=== PATIENT | female | born 1985 | race Caucasian/White ===

== ENCOUNTER 2016-11-04 13:16 | Observation (INO) | payer BC ==
[~2016-11-04] VITALS: Ht 154.9 cm; Wt 93.0 kg
--- NOTE | ~2016-11-04 | DS ---
Discharge Summary [id number] [place]. [address] NAME: DION CANAS : 85 STATUS : DIS Laci PAT#: [id number] AGE: 30 ADM/REG DATE : 11/04/16 MR#: [id number] REPORT SERV DATE: 11/07/16 DICTATED BY: DARRIAN CHAPA DATE: 11/06/16 REPORT STATUS : Draft TRANSCRIBED BY: MODRavi DATE: 11/06/16 ADMISSION DATE: 11/04/2016 DISCHARGE DATE: 11/06/2016 DISCHARGE DIAGNOSES: 1. Hyperglycemia. 2. Poorly-controlled diabetes mellitus type 2. 3. Hyponatremia. 4. Sinus tachycardia. 5. Elevated D-dimer. 6. Hypertriglyceridemia. 7. Hepatic steatosis. 8. Morbid obesity. 9. Major depression. 10.Anxiety disorder. 11.Tobacco abuse. 12.Marijuana use. 13.Gastroparesis. 14.Diabetes polyneuropathy. IMAGING: CTA of chest impression bibasilar segmental atelectasis, no pulmonary emboli. Chest x-ray, AP and lateral impression, no acute cardiopulmonary process. HISTORY OF PRESENT ILLNESS: For detailed HPI, please make reference to Dr. Maco Alexis's dictation on 11/04/2016. In brief, this is a 30-year-old female with medical history of hypertension, diabetes mellitus type 2, obesity, who presented to the emergency department with complaints of generalized body aches and was found to have significantly elevated blood sugar. PHYSICAL EXAMINATION: VITAL SIGNS: On presentation, temperature were 98, pulse was 115, respiratory rate 20, blood pressure of 160/94, and oxygen saturation 99% on room air. HEART: Regular rhythm, tachycardic. LUNGS: Clear to auscultation. No pedal edema. LABORATORY DATA: Sodium 129, potassium 4.3, chloride 97, CO2 OF 24, BUN 18, creatinine 0.8, and glucose 394. WBC 10.1, hemoglobin 12.2. HOSPITAL COURSE: 1. An assessment of diabetes mellitus with hyperglycemia, hyponatremia, and tachycardia were made in the ER. The patient was admitted to the Hospitalist Service. Hyperglycemia due to poorly-controlled diabetes mellitus type 2. The patient was started on gentle IV fluids. Receive subcu insulin. The patient's blood sugar gradually trended down. Laboratory data was reviewed. No evidence of DKA or HHS. The patient's hbA1c during this admission was 9.1. Diabetes education was provided. The Discharge Summary [address] [place]. [address] NAME: DION CANAS : 85 STATUS : DIS Laci PAT#: [id number] AGE: 30 ADM/REG DATE : 11/04/16 MR#: [id number] REPORT SERV DATE: 11/07/16 DICTATED BY: DARRIAN CHAPA DATE: 11/06/16 REPORT STATUS : Draft TRANSCRIBED BY: INGA DATE: 11/06/16 patient was counseled and on compliance with diabetes treatment plan and diet. Lantus insulin was added to the patient's oral hypoglycemics. The patient was advised to follow up with primary care physician within one week of discharge. 2. Hyponatremia. On presentation, the patient's serum sodium was 129, likely dilutional. The patient's sodium gradually improved with IV fluid resuscitation. At the time of discharge, the patient's sodium had returned back to baseline of 133. 3. Elevated D-dimer of unknown significance. The patient had a CTA of the chest during this admission. No PE was found. Lower extremities were examined. No evidence for DVTs on physical examination. The patient was advised to continue follow up with primary care physician. 4. Sinus tachycardia. The patient's heart rate at rest ranges between 100 and 110 during this admission likely related to anxiety disorder. No evidence of infection noted during this examination. No evidence of deep vein thrombosis or pulmonary embolus identified. TSH not in keeping with hyperthyroidism. A plasma metanephrine was ordered, result pending at the time of discharge. The patient to follow up with primary care physician with the results. The patient has also been advised to follow up with Cardiology as an outpatient. 5. Tobacco abuse and marijuana use. The patient was counseled during this admission to stop tobacco use. Nicotine patch was prescribed. The patient is in agreement to stop tobacco use and marijuana use. DISCHARGE MEDICATIONS: 1. Lantus insulin 15 units at bedtime. 2. Xanax 1 mg p.o. t.i.d. p.r.n. for anxiety disorder. 3. Lipitor 40 mg p.o. daily. 4. Lopid 600 mg p.o. b.i.d. 5. Linzess 290 mcg p.o. with breakfast. 6. Reglan 10 mg p.o. with meals. 7. Metoprolol 50 mg p.o. b.i.d. 8. Protonix 40 mg p.o. daily. 9. Risperidone 1 mg p.o. at bedtime. 10.Metformin 1000 mg p.o. b.i.d. 11.Glimepiride 1 mg p.o. b.i.d. 12.Nicotine patch 21 mg/24 hours. DISCHARGE ACTIVITY: As tolerated. DISCHARGE FOLLOWUP: Follow up with primary care physician within one week of discharge. Follow up with primary care to refer to Cardiology as an outpatient. Greater than 30 minutes was used to advise the patient on discharge plans, followups, and treatment plans. [facility] Discharge Summary [address] [address] NAME: DION CANAS : 85 STATUS : DIS Laci PAT#: [id number] AGE: 30 ADM/REG DATE : 11/04/16 MR#: [id number] REPORT SERV DATE: 11/07/16 DICTATED BY: DARRIAN CHAPA DATE: 11/06/16 REPORT STATUS : Draft TRANSCRIBED BY: INGA DATE: 11/06/16 Darrian Chapa MD / [id number] CC: MD Todd Sommer M.D.
--- NOTE | ~2016-11-04 | HP ---
History And Physical [address] [facility] [place]. [address] NAME: DION CANAS : 85 STATUS : ADM Laci PAT#: [id number] AGE: 30 ADM/REG DATE : 11/04/16 MR#: [id number] REPORT SERV DATE: 11/04/16 DICTATED BY: NORA ALEXIS DATE: 11/04/16 REPORT STATUS : Draft TRANSCRIBED BY: MODL DATE: 11/04/16 DATE OF ADMISSION: 11/04/2016 IDENTIFYING DATA: A 30-year-old white female, whose PCP is Dr. Todd Huggins; GI, Dr. Mag Boss; Neurology, Dr. Pagan. CHIEF COMPLAINT: Pain in my bones and high sugars. HISTORY OF PRESENT ILLNESS: This history of present illness is obtained by talking with the patient and her at bedside as well as the ER provider and reviewing [employer] and [employer]. The patient states that she came to the emergency room because her sugars have been high and she has been having a lots of other symptoms. I asked her to describe those. She tells me that she has been feeling short of breath. I asked her more details. She states well it feels like "I have to tell myself to breath." She did at one point in time, say her chest felt a little bit tight. She has episodes where she will feel diaphoretic. She has complained of pains in her bones. When I asked her to be specific, she describes her legs, feet, and knees. She states she recently went to the neurologist, Dr. Pagan, and had nerve conduction studies and was told she has neuropathy. She has occasional sharp pains in her stomach. She has chronic back pains. She went to [facility] yesterday because she was feeling poorly. She states they told her that her white blood count was high around 12 and that she had very poor kidney function and high sugars. She states they did a CT scan of abdomen and pelvis with dye and she states her blood pressure was 240/140, but they released her to go home. She states her heart rate has been fast also. REVIEW OF SYSTEMS: On further review of systems, she states she has chronic nausea and she states "I need Phenergan, nothing works like the Phenergan." She describes alternating constipation and diarrhea. She has occasional bright red blood per rectum, but then she states she is not sure if it is from the rectum or urine, but that has been weeks ago. She states she has gained 30 pounds in the last year. She has a chronic cough. She has some vague chest pain in the left upper chest. She has had some headache in the left occipital and left trapezius area. She denies fever, sore throat, vomiting, melena, dysuria, peripheral edema, rash, or tick bites. ALLERGIES: SHE CLAIMS ALLERGIES TO SHELLFISH DERIVATIVES AND HYDROCODONE. PAST MEDICAL HISTORY: She denies asthma, heart disease, stroke, seizure, peptic ulcer or thyroid disease, or cancer. She was diagnosed as having diabetes mellitus type 2 with gastroparesis. She states that began after pancreatitis one to two years ago. She also reports that she has high triglycerides in the 4000 range. She does not know if that was noticed at the time of her pancreatitis. She says they did not mention it to her and she only knew about her triglycerides over the last few months. She has had hypertension. She has obesity. She History And Physical [address] [address] NAME: DION CANAS : 85 STATUS : ADM Laci PAT#: [id number] AGE: 30 ADM/REG DATE : 11/04/16 MR#: [id number] REPORT SERV DATE: 11/04/16 DICTATED BY: NORA ALEXIS DATE: 11/04/16 REPORT STATUS : Draft TRANSCRIBED BY: INGA DATE: 11/04/16 has fatty liver. She states she has chronic kidney disease. She also states she has PTSD. She states she has had spells where she nearly blacks out. She states things sound really loud and she has poor recall of what is going on around her. She just does not feel right. HOME MEDICATIONS: Xanax 1 mg q.i.d.; Lipitor 40 mg q.h.s.; Colace 250 mg at bedtime; gemfibrozil 600 mg b.i.d.; glimepiride 1 mg b.i.d.; Vistaril 50 mg t.i.d.; Linzess 290 mcg before breakfast; Amitiza 24 mcg at bedtime; metformin 1000 mg b.i.d., on hold since yesterday's CT; Reglan 10 mg a.c. and h.s.; metoprolol 25 mg q.6 hours "depending on blood pressure;" Trileptal 600 mg at bedtime; Protonix 40 mg daily; Phenergan 12.5 mg q.4 hours p.r.n.; and Risperdal 2 mg at bedtime. PAST SURGICAL HISTORY: She has had a cholecystectomy, a D and C, and she had a CHIVO-BSO for report of excess bleeding. She had an umbilical hernia repair and bilateral ankle surgery. When I asked her why she had the ankle surgery, she stated that they were trying to improve my arches, so I could get a softball scholarship and they messed it up. SOCIAL HISTORY: She smokes half pack per day. Alcohol intake: She states is occasional. She states she has not been able to work in a year because of too many health issues. She is homosexual and her is at bedside. FAMILY HISTORY: She tells me she cannot tell me anything about her parents medical history, and she states her siblings are doing fine. DIAGNOSTIC DATA: Chest x-ray done as a PA and lateral reveals clear lung rosenbaum, normal cardiac silhouette, normal bony architecture, this is per my interpretation. EKG done today at 1324 hours reveals sinus tachycardia at 115 beats per minute. There is some minimal lateral T-wave flattening and an inferior inversion. No old EKGs for comparison, and this is per my interpretation. Sodium 129, potassium 4.3, chloride 97, CO2 is 24, BUN 18, creatinine 0.8, glucose is 394, calcium is 6.4, albumin 3.7, and magnesium 1.8. Troponin less than 0.02. Ionized calcium 5.12. White count is 10.1, hemoglobin 12.2, and platelets 326,000. Pro-time is 13.1, INR 1.0, and PTT is 25.4. After the patient was given insulin and some fluids in the emergency room, her followup fingerstick glucose is 183. PHYSICAL EXAMINATION: VITAL SIGNS: Temp is 98, pulse 115, respirations 20, blood pressure initially 160/94, and O2 saturation 99% on room air. GENERAL: A well-developed female, who appears at this time in no acute distress. HEENT: Head is atraumatic. Pupils are equal, round, and reactive to light. Extraocular motions are intact. No scleral icterus noted. Ears, externally unremarkable. No inflammatory changes noted. Normal hearing bilaterally. Nose, noninflamed externally. Septum midline. Nares patent. Mouth, moist. Good gag. No redness of the throat, gums, or lips. NECK: Supple. No lymph node or thyroid enlargement. The carotids have good pulses. No bruits. LUNGS: Clear with good air flow. No wheezes. No rhonchi. Normal respiratory effort. HEART: Tachycardic and regular without murmur, gallop, click, or rub. History And Physical [address] [place]. [address] NAME: DION CANAS : 85 STATUS : ADM Laci PAT#: [id number] AGE: 30 ADM/REG DATE : 11/04/16 MR#: [id number] REPORT SERV DATE: 11/04/16 DICTATED BY: NORA ALEXIS DATE: 11/04/16 REPORT STATUS : Draft TRANSCRIBED BY: INGA DATE: 11/04/16 ABDOMEN: Obese. Bowel sounds positive. Soft, nondistended, and nontender. No masses. No organomegaly. EXTREMITIES: Thin, warm, and good pulses. No clubbing. No cyanosis. No edema. No actively inflamed skin or joints. NEUROLOGIC: She is alert, oriented, and cooperative with grossly normal mentation and speech as well as motor and cranial nerves II through XII. No Babinski or clonus noted. ASSESSMENT: 1. Sinus tachycardia that could be related to volume depletion or pain or less likely hyperthyroidism (less likely given her progressive weight gain). 2. Hypocalcemia that looks to me more like a lab error. 3. Diabetes mellitus type 2 with suspected poor control and history of hypertriglyceridemia with her triglycerides reportedly in the 4000 range. 4. Hyponatremia. This is probably a combination of dilutional from the hyperglycemia and depletional. 5. See past medical history. PLAN: The patient is an observation status. We are going to give her some lactated Ringer's. We are going to check a TSH and also a blood gas because she felt short of breath. We will check an A1c. We are also going to get fasting triglycerides in the morning. We will get a urinalysis. She states she thinks she may have had blood in her stool, so we are going to do stool guaiac x1. We will check a D-dimer tonight, if it is elevated, we will get a V/Q scan because she states she is allergic to all shellfish derivatives. We will check an HIV antibody, LFTs, and with the question of her calcium, we will check a parathyroid hormone level, a vitamin D level, and follow up calcium levels. We will also get a B-natriuretic peptide. Therapeutically, we will initiate some gabapentin for suspected peripheral neuropathy pain. RSG/MODL Nora Alexis M.D. / [id number] CC: MD Todd Sommer M.D.
[2016-11-04 13:44] LABS: PARTIAL THROMBO TIME 35.4 SEC (22.5-37.2)
[2016-11-04 13:52] LABS: CHEST PAIN PROFILE TAT 0 Hrs 20 Mins; CHLORIDE, SERUM 97 MMOL/L (96-112); CO2 (CARBON DIOXIDE) 24 MMOL/L (24-34); GFR AFRICAN AMERICAN 115 ML/MIN (>=60); GFR NON AFRICAN AMERICAN 99 ML/MIN (>=60); SODIUM, SERUM 129 MMOL/L (135-148); TROPONIN I <0.02 NG/ML (<0.05)
[2016-11-04 13:54] LABS: BUN (BLOOD UREA NITROGEN) 18 MG/DL (6-23); CALCIUM, SERUM 6.4 MG/DL (8.5-10.4); GLUCOSE, SERUM 391 MG/DL (60-99)
[2016-11-04 13:55] LABS: POTASSIUM, SERUM 4.3 MMOL/L (3.5-5.3)
[2016-11-04 13:59] LABS: BASOPHILS 0.2 %; BASOPHILS ABSOLUTE 0.02 10/3/uL (0.0-0.16); EOSINOPHILS 3.3 %; EOSINOPHILS ABSOLUTE 0.33 10/3/uL (0.0-0.53); IMMATURE GRANULOCYTES 0.6 %; LYMPHOCYTES 18.4 %; LYMPHOCYTES ABSOLUTE 1.87 10/3/uL (0.67-4.30); MEAN CORPUSCULAR VOLUME 81.3 fL (80-100); MEAN PLATELET VOLUME 9.8 fL (9.2-13.0); MONOCYTES 18.5 %; MONOCYTES ABSOLUTE 1.88 10/3/uL (0.21-1.20); NEUTROPHILS ABSOLUTE 5.98 10/3/uL (2.02-8.40); PLATELET COUNT 326 10/3/uL (150-400); RBC DISTRIBUTION WIDTH 13.7 % (12.0-16.0); RED CELL COUNT 4.54 10/6/uL (4.0-5.6); WHITE BLOOD CELLS 10.1 10/3/uL (4.5-10.5)
[2016-11-04 14:01] LABS: ER CBC TAT 0 Hrs 27 Mins
[2016-11-04 14:02] LABS: HEMATOCRIT 36.9 % (36.0-48.0); HEMOGLOBIN 12.2 g/dL (12.0-16.0); IMMATURE GRANULOCYTES ABSOLUTE 0.06 10/3/uL (0.0-0.11); MANUAL DIFF NO %; MEAN CORPUS HGB CONC 33.1 g/dL (32.0-36.0); MEAN CORPUSCULAR HEMOGLOB 26.9 pg (26.0-34.0)
[2016-11-04 14:16] LABS: EOSINOPHILS 4 %; ER DIFF TAT 0 Hrs 44 Mins; LYMPHOCYTES 25 %; LYMPHOCYTES ABSOLUTE (CALC) 2.53 10/3/uL (0.67-4.30); MONOCYTES 7 %; MONOCYTES ABSOLUTE (CALC) 0.71 10/3/uL (0.21-1.20); NEUTROPHILS ABSOLUTE (CALC) 6.46 10/3/uL (2.02-8.40); PLATELET ESTIMATE ADQ (ADEQUATE); SEGMENTED NEUTROPHIL (0) 64 %; TOTAL NUCLEATED CELLS 100
[2016-11-04 14:17] LABS: RBC MORPHOLOGY NORM (NORMAL)
[2016-11-04] MEDS ORDERED: PROTONIX PO (15:16)
[2016-11-04] MEDS ORDERED: AMITIZA24 PO (15:16)
[2016-11-04] MEDS ORDERED: DOK250 MG PO (15:16)
[2016-11-04] MEDS ORDERED: FORTAMET1000 MG PO (15:18)
[2016-11-04] MEDS ORDERED: REG PO (15:18)
[2016-11-04] MEDS ORDERED: LIPITOR40 PO (15:18)
[2016-11-04] MEDS ORDERED: LINZESS 290 M290 MCG PO (15:19)
[2016-11-04] MEDS ORDERED: LOPID6 PO (15:19)
[2016-11-04] MEDS ORDERED: TRILEPTAL600 MG PO (15:19)
[2016-11-04] MEDS ORDERED: XANAX1 MG PO (15:20)
[2016-11-04] MEDS ORDERED: VIST50 PO (15:20)
[2016-11-04] MEDS ORDERED: LOP25 PO (15:21)
[2016-11-04] MEDS ORDERED: AMARYL1 MG PO (15:22)
[2016-11-04] MEDS ORDERED: RISP1 PO (15:22)
[2016-11-04] MEDS ORDERED: PR12.5 PO (15:23)
[2016-11-04 18:01] LABS: ALBUMIN 3.7 G/DL (3.5-5.0)
[2016-11-04 22:36] LABS: BE (BASE EXCESS) -1.9 MEQ/L (0 +/- 2.5); CARBOXYHEMOGLOBIN 9.4 % (0-3); HCO3 (ACTUAL BICARBONATE) 22.1 MEQ/L (23-27); HEMOBLOGIN CONTENT 12.5 G/DL (12-16); INSTRUMENT SERIAL # 8087; METHEMOGLOBIN 0.3 % (0-3); OPERATOR ID 17537; PCO2 (CO2 TENSION) 36 MMHG (35-45); PO2 (O2 TENSION) 71 MMHG (79-93); SAMPLE Arterial; pH 7.41 (7.37-7.43)
[2016-11-05 00:12] LABS: INTACT PTH (ICMA) 29.2 PG/ML (10.0-65.0)
[2016-11-05 00:14] LABS: B NATRIURETIC PEPTIDE (BNP) < 2.0 PG/ML (< 100.0)
[2016-11-05 02:32] LABS: TROPONIN I <0.02 NG/ML (<0.05)
[2016-11-05 02:46] LABS: ALBUMIN 3.9 G/DL (3.5-5.0); TOTAL BILIRUBIN 0.6 MG/DL (0-1.2)
[2016-11-05 03:14] LABS: INDIRECT BILIRUBIN(NOT ORDER) 0.2 MG/DL (0.1-0.9)
[2016-11-05 03:15] LABS: ALKALINE PHOSPHATASE 98 U/L (45-117)
[2016-11-05 03:16] LABS: DIRECT BILIRUBIN < 0.4 MG/DL (0.0-0.4)
[2016-11-05 03:19] LABS: TOTAL PROTEIN 6.4 G/DL (6.0-8.5)
[2016-11-05 03:32] LABS: SGOT(AST) 105 U/L (5-40); SGPT(ALT) 71 U/L (5-65)
[2016-11-05 04:25] LABS: ALBUMIN 3.8 G/DL (3.5-5.0); BUN (BLOOD UREA NITROGEN) 17 MG/DL (6-23); CHLORIDE, SERUM 104 MMOL/L (96-112); CO2 (CARBON DIOXIDE) 25 MMOL/L (24-34); CREATININE 0.74 MG/DL (0.55-1.02); GFR AFRICAN AMERICAN 126 ML/MIN (>=60); GFR NON AFRICAN AMERICAN 109 ML/MIN (>=60); POTASSIUM, SERUM 3.8 MMOL/L (3.5-5.3); TROPONIN I <0.02 NG/ML (<0.05)
[2016-11-05 04:28] LABS: GLUCOSE, SERUM 242 MG/DL (60-99); SODIUM, SERUM 137 MMOL/L (135-148)
[2016-11-05 10:54] LABS: GLYCOHEMOGLOBIN (HbA1c) 9.1 % (4.7-6.1)
[2016-11-05 12:57] LABS: FREE T4 1.28 NG/DL (0.76-1.46); T3 UPTAKE 37 % (30-45)
[2016-11-05 12:59] LABS: AMPHETAMINES (NOT ORD) NEG (NEG); BARBITURATES (NOT ORDERED NEG (NEG); BENZODIAZEPINES (NOT ORD) POS (NEG); CANNABINOIDS (THC) POS (NEG); COCAINE (NOT ORDERED) NEG (NEG); OPIATES POS (NEG); PHENCYCLIDINE(PCP) NEG (NEG); TRICYCLICS NEG (NEG)
[2016-11-06 04:54] LABS: HEMOGLOBIN 11.8 g/dL (12.0-16.0); MEAN CORPUSCULAR VOLUME 83.2 fL (80-100); MEAN PLATELET VOLUME 9.7 fL (9.2-13.0); PLATELET COUNT 274 10/3/uL (150-400); RBC DISTRIBUTION WIDTH 13.9 % (12.0-16.0); RED CELL COUNT 3.88 10/6/uL (4.0-5.6); WHITE BLOOD CELLS 7.6 10/3/uL (4.5-10.5)
[2016-11-06 04:56] LABS: HEMATOCRIT 32.3 % (36.0-48.0); MANUAL DIFF YES %; MEAN CORPUS HGB CONC 36.5 g/dL (32.0-36.0); MEAN CORPUSCULAR HEMOGLOB 30.4 pg (26.0-34.0)
[2016-11-06 07:34] LABS: BAND NEUTROPHILS 1 %; EOSINOPHILS 1 %; EOSINOPHILS ABSOLUTE (CALC) 0.08 10/3/uL (0.0-0.53); LYMPHOCYTES 24 %; LYMPHOCYTES ABSOLUTE (CALC) 1.82 10/3/uL (0.67-4.30); MONOCYTES 3 %; MONOCYTES ABSOLUTE (CALC) 0.23 10/3/uL (0.21-1.20); NEUTROPHILS ABSOLUTE (CALC) 5.47 10/3/uL (2.02-8.40); PLATELET ESTIMATE ADQ (ADEQUATE); SEGMENTED NEUTROPHIL (0) 71 %; TOTAL NUCLEATED CELLS 100
[2016-11-06 07:35] LABS: RBC MORPHOLOGY NORM (NORMAL)
[2016-11-07 10:42] LABS: HEPATITIS B SURFACE ANTIGEN NON-REACTIVE (NON-REACT)
[2016-11-07 10:51] LABS: HEPATITIS C ANTIBODY NON-REACTIVE (NON-REACT)
[2016-11-07 10:52] LABS: HEPATITIS B CORE AB IGM NON-REACTIVE (NON-REAC)
[2016-11-07 10:53] LABS: HEP A ANTIBODY IGM NON-REACTIVE (NON-REACT); HIV COMBO NON-REACTIVE (NON REAC)
== END 2016-11-06 11:50 | disposition home or self-care (01) ==
LOC: ER 13:16 → CDU1 15:50
PROVIDERS: Emergency Medicine; Hospitalist
DX: E11.65 Type 2 diabetes mellitus with hyperglycemia (principal); E11.43 Type 2 diabetes mellitus with diabetic autonomic (poly)neuropathy; E11.42 Type 2 diabetes mellitus with diabetic polyneuropathy; E11.22 Type 2 diabetes mellitus with diabetic chronic kidney disease; N18.9 Chronic kidney disease, unspecified; E66.01 Morbid (severe) obesity due to excess calories; E87.1 Hypo-osmolality and hyponatremia; R00.0 Tachycardia, unspecified; K76.0 Fatty (change of) liver, not elsewhere classified; F32.9 Major depressive disorder, single episode, unspecified; F41.9 Anxiety disorder, unspecified; F12.90 Cannabis use, unspecified, uncomplicated; K31.84 Gastroparesis; R79.1 Abnormal coagulation profile; F17.210 Nicotine dependence, cigarettes, uncomplicated; E83.51 Hypocalcemia; E78.5 Hyperlipidemia, unspecified; Z91.013 Allergy to seafood; Z88.8 Allergy status to other drugs, medicaments and biological substances; Z79.899 Other long term (current) drug therapy; Z90.49 Acquired absence of other specified parts of digestive tract; Z98.890 Other specified postprocedural states
CPT/HCPCS: 36600; 71020; 71275; 80048; 80074; 80076; 80305; 82040; 82306; 82330; 82533; 82805; 82962; 83036; 83735; 83835; 83880; 83970; 84439; 84443; 84479; 84484; 85025; 85379; 85610; 85730; 87389; 93005; 96372; 96374; 96375; 96376; 99285; A9270-GY; G0378; J1170; J2405; Q9967